=== PATIENT | female | born 1990 | race African-American/Black ===

== ENCOUNTER 2023-05-21 09:22 | Outpatient (CLI) | payer OTHER, SELFPAY ==
--- NOTE | ~2023-05-21 | US_ITS ---
EXAMINATION: US pelvic complete DATE: 05/21/2023 10:06 INDICATION: Uterine fibroids. Uterine hypertrophy. Comparison:No prior studies for comparison. TECHNIQUE: Multiple transabdominal and endovaginal sonographic images of the pelvis performed. FINDINGS: Uterus is enlarged measuring 20.6 x 12.1 x 17.8 cm with multiple fibroids. The endometrium is thickened measuring 1.8 cm with heterogeneous internal echotexture. The right ovary is enlarged measuring 9.4 x 7.8 x 10.4 cm with normal Doppler signal. There are multi ple simple and complicated cysts of the right ovary, largest discrete measurable measuring 4.9 cm whi ch is partially cystic with internal septations. The left ovary is not identified. No free fluid Ther e is no free fluid in the pelvis. There are no abnormal masses seen on either side. IMPRESSION: 1. Enlarged fibroid uterus with endometrial thickening. 2: Enlarged right ovary containing multiple simple and complicated cystic masses, largest measuring 4.9 cm. Although these are likely functional cyst other etiologies such as cystadenoma and cystadenoc arcinoma are not excluded. Recommend follow-up ultrasound in 4-6 weeks. Reviewed, dictated and finalized at location B. IMPRESSION: 1. Enlarged fibroid uterus with endometrial thickening. 2: Enlarged right ovary containing multiple simple and complicated cystic mass es, largest measuring 4.9 cm. Although these are likely functional cyst other e tiologies such as cystadenoma and cystadenocarcinoma are not excluded. Recommen d follow-up ultrasound in 4-6 weeks.
== END 2023-05-21 09:23 ==
LOC: MICIMG 09:23
PROVIDERS: PCP Nurse Practitioner; Visit Provider Nurse Practitioner
DX: N85.2 Hypertrophy of uterus (principal); D25.9 Leiomyoma of uterus, unspecified
CPT/HCPCS: 76856

== ENCOUNTER 2023-05-24 10:49 | Outpatient (CLI) | payer OTHER, SELFPAY ==
[2023-05-24 12:16] LABS: Carcinoembryonic Antigen < 0.3 ng/mL (0.0-3.0)
[2023-05-27 21:29] LABS: CA 19-9 45 U/mL (<34)
[2023-05-28 04:11] LABS: CA-125 65 U/mL (<35)
== END 2023-05-24 10:50 | disposition home or self-care (01) ==
LOC: ANHLAB 10:51
PROVIDERS: PCP Nurse Practitioner; Visit Provider Obstetrics & Gynecology Gynecology
DX: N83.201 Unspecified ovarian cyst, right side (principal)
CPT/HCPCS: 36415; 82378; 86301; 86304

== ENCOUNTER → 2023-10-01 08:36 | Outpatient (CLI) | payer OTHER, SELFPAY ==
--- NOTE | ~2023-10-01 | US_ITS ---
EXAMINATION: US pelvic complete DATE: 10/01/2023 09:00 INDICATION: Uterine fibroids TECHNIQUE: Multiple transabdominal and endovaginal sonographic images of the pelvis were obtained. COMPARISON: 05/21/2023 FINDINGS: The uterus measures 19.2 x 10.8 x 6.7 cm. There are multiple intramural fibroids of the [place] [facility] measuring up to 11.1 cm. The endometrial complex measures 11 mm. The left ovary is not visualized however no left adnexal abnormality is seen. The right ovary measures 7.6 x 6.9 x 6.6 cm and contain s a 4.7 cm cyst. The previously identified internal complexity is no longer evident. There is normal vascular flow in the right ovary. There is no free fluid in the pelvis. IMPRESSION: 1. Probable resolving hemorrhagic cyst of the right ovary. 2. Enlarged fibroid uterus. Reviewed, dictated and finalized at location B. [employer]
== END ==
PROVIDERS: PCP Obstetrics & Gynecology Gynecology; Visit Provider Obstetrics & Gynecology Gynecology
DX: D25.1 Intramural leiomyoma of uterus (principal); N85.2 Hypertrophy of uterus
CPT/HCPCS: 76856

== ENCOUNTER 2024-01-16 07:34 | Emergency (ER) | payer OTHER, SELFPAY ==
[2024-01-16] VITALS (10 sets, daily range): BP systolic 109–128; BP diastolic 64–80; PULSE 70–90; RESP 13–28; TEMP 36.4; O2SAT 99–100
[2024-01-16] MEDS: ONDANSETRON INJ 4 MG/2 ML VIAL IV PUSH (07:47)
[2024-01-16] MEDS: MORPHINE SULFATE (*CRX) 4 MG/ML INJ IV PUSH (07:47)
[2024-01-16] MEDS: KETOROLAC 15 MG/ML VIAL (*BKC) IV PUSH (07:47)
[2024-01-16 07:49] LABS: Basophils Percent Auto 0.3 % (0.2-1.2); Eosinophils Absolute Auto 0.1 K/mm3 (0-0.3); Eosinophils Percent Auto 0.9 % (0-4.4); Hematocrit 36.4 % (37.0-47.0); Hemoglobin 11.1 g/dL (12.0-15.0); Immature Granulocyte Absolute 0.02 K/mm3 (0.00-0.031); Immature Granulocyte Percent A 0.3 % (0-0.5); Lymphocytes Percent Auto 18.7 % (18.3-44.2); Mean Corpuscular HGB Conc 30.5 g/dl (32-36); Mean Corpuscular Volume 72.2 fl (80-100); Mean Platelet Volume 11.1 fl (7.4-10.4); Monocytes Absolute Auto 0.6 K/mm3 (0.1-0.6); Neutrophils Absolute Auto 5.4 K/mm3 (1.3-6.7); Neutrophils Percent Auto 71.8 % (45.5-73.1); Platelet Count Result 360 k/mm3 (150-375); Red Blood Count 5.04 M/mm3 (4.2-5.4); Red Cell Distribution Width 17.1 % (11.5-14.5); White Blood Count 7.5 K/mm3 (4.5-10.0)
[2024-01-16 08:01] LABS: Alanine Aminotransferase 11 U/L (6-35); Albumin Level 4.6 g/dL (3.5-5.1); Alkaline Phosphatase 51 U/L (38-126); Anion Gap 10 mmol/L (4-12); Aspartate Amino Transferase 20 U/L (14-36); Bilirubin,Total 0.9 mg/dL (0.2-1.3); Blood Urea Nitrogen 8 mg/dL (7-17); Calcium 9.4 mg/dL (8.4-10.2); Carbon Dioxide 16 mmol/L (22-30); Chloride 112 mmol/L (98-107); Estimated CRCL calculation 81 ml/min; Estimated Glomerular Filt Rate > 60; Glucose 98 mg/dL (65-110); Lipase 96 U/L (23-300); Potassium 3.6 mmol/L (3.4-5.0); Sodium 138 mmol/L (137-145)
[2024-01-16 09:04] LABS: Appearance Urine Clear (Clear); Bacteria Urine Rare /hpf; Bilirubin Urine Negative (Negative); Blood Urine Negative (Negative); Color Urine Yellow (Yellow); Glucose Urine UA Negative (Negative); Ketones Urine 1+ mg/dL (Negative); Leukocyte Esterase Ur Trace LEU/UL (Negative); Nitrate Urine Negative (Negative); Non Pathogenic Casts 0-2; Protein Urine Negative (Negative); RBC Urine 0-2 /hpf (0-2); Specific Grav Ur 1.012 (1.001-1.035); Squamous Epithelial Cell Urine Occasional /hpf (Few); Urobilinogen Urine 0.2 mg/dL (<2.0); WBC Urine 0-5 /hpf (0-3)
--- NOTE | 2024-01-16 09:04 | ED.ABDPAIN ---
HPI - Abdominal Pain General Chief Complaint: Abdominal Pain Stated Complaint: abd pain, cramps Time Seen by Provider: 01/16/24 07:40 Source: patient Mode of arrival: ambulatory Limitations: no limitations History of Present Illness HPI narrative: 33-year-old with a history of fibroid uterus here with the complaints of lower abdominal pain which started nausea side. Patient states that she took 2 tablets of acetaminophen last night with no relief. She denies any fever or chills. No history of nausea vomiting. MD elicited complaint: abdominal pain Pertinent past history: other (Fibroids) Onset (ago): day(s) (1) Pain Consistency: constant Location: suprapubic Severity: moderate Quality: aching Radiation: suprapubic Migration to: no migration Exacerbating factors: nothing Associated symptoms: denies other symptoms Related Data Allergies Allergy/AdvReac Type Severity Reaction Status Date / Time No Known Allergies Allergy Verified 01/16/24 07:43 Review of Systems Review of Systems: All systems reviewed & are unremarkable except as noted in HPI and below Constitutional: Constitutional: Reports no additional constitutional complaints Eyes: Eyes: Reports no additional eye complaints ENT: Reports system reviewed and no additional complaints, except as documented Cardiovascular: Cardiovascular: Reports no additional cardiovascular complaints Respiratory: Respiratory: Reports no additional respiratory complaints Gastrointestinal: Gastrointestinal: Reports as per HPI Musculoskeletal: Musculoskeletal: Reports no additional musculoskeletal complaints Integumentary/Breasts: Skin/Breast: Reports system reviewed and no additional complaints, except as docu Neurologic: Reports system reviewed and no additional complaints, except as documented Exam Narrative: GENERAL: Well-appearing, well-nourished, and in no acute distress. Tearful HEAD: Normocephalic, atraumatic. EYES: PERRLA and EOMI. ENT: Nares clear, no rhinorrhea or epistaxis. Mucous membranes moist. NECK: Supple. CHEST: Clear to auscultation. No respiratory distress. HEART: Regular rate and rhythm. No murmur heard. Normal peripheral pulses. ABDOMEN: Soft, nontender, nondistended, normal active bowel sounds. EXTREMITIES: Normal range of motion. No edema. SKIN: Warm, dry, no rash. NEURO: No focal deficits. Alert and oriented x3. PSYCH: Normal mood and affect. Course Course Emergency Course: Patient feeling much better after IV Toradol and morphine. A informed about her lab work. I would like her to take pain medication as prescribed, follow-up with her OBGYN. Vital Signs Vital signs: Vital Signs Temperature 36.4 C 01/16/24 07:39 Pulse Rate 90 01/16/24 07:39 Respiratory Rate 23 H 01/16/24 07:39 Blood Pressure 114/80 01/16/24 07:39 Pulse Oximetry 100 01/16/24 07:39 Oxygen Delivery Room Air 01/16/24 07:39 Temperature 36.4 C 01/16/24 07:39 Pulse Rate 71 01/16/24 09:08 Respiratory Rate 14 01/16/24 09:08 Blood Pressure 128/64 01/16/24 09:08 Pulse Oximetry 99 01/16/24 09:08 Oxygen Delivery Room Air 01/16/24 07:39 MDM - Abdominal Pain Differential Diagnosis Differential diagnosis: Likely abdominal pain, calculus of kidney and constipation Lab Data 01/16/24 07:44 01/16/24 07:44 Labs: Lab Results 01/16/24 01/16/24 Range/Units 07:44 08:50 WBC 7.5 (4.5-10.0) K/mm3 RBC 5.04 (4.2-5.4) M/mm3 Hgb 11.1 L (12.0-15.0) g/dL Hct 36.4 L (37.0-47.0) % MCV 72.2 L (80-100) fl MCH 22.0 L (26-34) pg MCHC 30.5 L (32-36) g/dl RDW 17.1 H (11.5-14.5) % Plt Count 360 (150-375) k/mm3 MPV 11.1 H (7.4-10.4) fl Immature Gran % (Auto) 0.3 (0-0.5) % Neut % (Auto) 71.8 (45.5-73.1) % Lymph % (Auto) 18.7 (18.3-44.2) % [place] % (Auto) 8.0 (2.6-8.5) % Eos % (Auto) 0.9 (0-4.4) % Baso % (Auto) 0.3 (0.2-1.2) % Lymph # (Auto) 1.40 (0.
[2024-01-16 09:11] LABS: Add Urine Microscopic? YES
== END 2024-01-16 09:09 | disposition home or self-care (01) ==
PROVIDERS: Emergency Provider Family Medicine; PCP Obstetrics & Gynecology Gynecology
DX: N94.6 Dysmenorrhea, unspecified (principal)
CPT/HCPCS: 36415; 80053; 81001; 81025; 83690; 85025; 96374; 96375; 99284; J1885; J2270; J2405

== ENCOUNTER 2024-01-17 00:02 | Emergency (ER) | payer OTHER, SELFPAY ==
--- NOTE | ~2024-01-17 | CT_ITS ---
EXAMINATION: CT abdomen pelvis w con DATE: 01/17/2024 01:10 INDICATION: Abdominal pain. TECHNIQUE: Computed tomography (CT) of the abdomen and pelvis was performed with 100 mL Omnipaque 350 intravenous contrast. Automated exposure control and iterative reconstruction technique were employe d. The dose-length product was 189.33 mGy-cm. COMPARISON: None. FINDINGS: The visualized portions of the lung bases are clear without pneumonia or pleural effusion. The heart size is normal. No pericardial effusion. The liver is normal. The gallbladder is distended. The spleen, pancreas, and adrenal glands are normal. There is mild bilateral hydronephrosis. There a re no dilated loops of bowel. The appendix is normal. The uterus measures 18.9 x 12.3 x 12.6 cm and c ontains multiple fibroids measuring up to 11.4 cm. The endometrial complex is normal. In the left adn exa, there is a 7.8 x 3.4 cm cyst. There is physiologic fluid in the abdomen. There are no pathologic ally enlarged lymph nodes. There is mild lumbar spondylosis. IMPRESSION: 1. Large uterus with multiple fibroids. 2. Mild bilateral hydronephrosis, likely secondary to the enlarged uterus. 3. 7.8 cm cyst in the left adnexa, likely benign. Left ovarian torsion is not excluded. Pelvis ultras ound is recommended in one year. Reviewed, dictated and finalized at location A. IMPRESSION: 1. Large uterus with multiple fibroids. 2. Mild bilateral hydronephrosis, likely secondary to the enlarged uterus. 3. 7.8 cm cyst in the left adnexa, likely benign. Left ovarian torsion is not e xcluded. Pelvis ultrasound is recommended in one year.
--- NOTE | ~2024-01-17 | US_ITS ---
EXAMINATION: US pelvic complete DATE: 01/17/2024 04:44 INDICATION: Left pelvic pain. TECHNIQUE: Multiple transabdominal sonographic images of the pelvis were obtained. COMPARISON: CT abdomen and pelvis 01/17/2024 FINDINGS: The uterus measures 17.7 cm. There are multiple fibroids in uterus measuring up to 8.9 cm. There is p hysiologic free fluid in the pelvis. The endometrial complex is not well visualized. The right ovary measures 7.2 x 4.1 x 4.9 cm. The left ovary measures 8.3 x 5.6 x 5.1 cm. There is normal vascular devon w in the ovaries. IMPRESSION: 1. Uterine fibroids. 2. Enlarged ovaries. Visibility is poor, and these measurements may be overestimated. Reviewed, dictated and finalized at location A. IMPRESSION: 1. Uterine fibroids. 2. Enlarged ovaries. Visibility is poor, and these measurements may be overesti mated.
[2024-01-17 00:06] VITALS: BP 103/73; PULSE 99; RESP 18; TEMP 36.4; O2SAT 95
--- NOTE | 2024-01-17 00:36 | ED.ABDPAIN ---
HPI - Abdominal Pain General Chief Complaint: Abdominal Pain <ABENA Orozco Last Filed: 01/21/24 09:57> Stated Complaint: Lower abd pain, seen earlier <ABENA Orozco Last Filed: 01/21/24 09:57> Time Seen by Provider: 01/17/24 00:17 <ABENA Orozco Last Filed: 01/21/24 09:57> Source: patient <ABENA Orozco Last Filed: 01/21/24 09:57> Mode of arrival: ambulatory <ABENA Orozco Last Filed: 01/21/24 09:57> Limitations: no limitations <ABENA Orozco Last Filed: 01/21/24 09:57> History of Present Illness HPI narrative: This is a 33 year old female that presents to the ER for lower abdominal pain. Ongoing since earlier today. Associated nausea. She has evaluated the ER for this earlier a given a dose of morphine and Toradol with relief. Presents tonight for continued pain. Denies fevers, vomiting, dysuria, or hematuria. <ABENA Orozco Last Filed: 01/21/24 09:57> Related Data Allergies/Adverse Reactions: Allergies Allergy/AdvReac Type Severity Reaction Status Date / Time No Known Allergies Allergy Verified 01/17/24 00:13 <ABENA Orozco Last Filed: 01/21/24 09:57> Review of Systems Review of Systems: CONSTITUTIONAL: Denies fever GASTROINTESTINAL: Reports abdominal pain and nausea. Denies vomiting, or diarrhea. GENITOURINARY: Denies dysuria <ABENA Orozco Last Filed: 01/21/24 09:57> All systems reviewed & are unremarkable except as noted in HPI and below <ABENA Orozco Last Filed: 01/21/24 09:57> [facility] Past Medical History Medical History: Medical History (Updated 01/20/24 @ 00:01 by Malik Lundy) History of uterine fibroid <ABENA Orozco Last Filed: 01/21/24 09:57> Social History Social History: Social History (Updated 01/17/24 @ 00:39 by Arpita Anderson PA-C) Smoking status: Never smoker <Arpita Anderson PA-C - Last Filed: 01/21/24 09:57> Exam Narrative: GENERAL: Well-appearing, well-nourished, and in no acute distress. HEAD: Normocephalic, atraumatic. EYES: EOMI. CHEST: Clear to auscultation. No respiratory distress. No wheezes rales or rhonchi HEART: Regular rate and rhythm. No murmur heard. Normal peripheral pulses. ABDOMEN: Enlarged uterus, normal active bowel sounds. Tender to palpation of the left lower abdomen, without guarding EXTREMITIES: Normal range of motion. No edema. SKIN: Warm, dry, no rash. NEURO: No focal deficits. Alert and oriented x3. PSYCH: Normal mood and affect <Arpita Anderson PA-C - Last Filed: 01/21/24 09:57> Course Course Emergency Course: Patient updated on her workup thus far. Care taken over by Dr. Rosales at shift change <Arpita Anderson PA-C - Last Filed: 01/21/24 09:57> Vital Signs Vital signs: Vital Signs Temperature 97.6 F 01/17/24 00:06 Pulse Rate 99 01/17/24 00:06 Respiratory Rate 18 01/17/24 00:06 Blood Pressure 103/73 01/17/24 00:06 Pulse Oximetry 95 01/17/24 00:06 Oxygen Delivery Room Air 01/17/24 00:06 Temperature 97.6 F 01/17/24 00:06 Pulse Rate 82 01/17/24 06:32 Respiratory Rate 18 01/17/24 06:32 Blood Pressure 113/72 01/17/24 06:32 Pulse Oximetry 100 01/17/24 06:32 Oxygen Delivery Room Air 01/17/24 00:06 <Arpita Anderson PA-C - Last Filed: 01/21/24 09:57> Vital Signs Temperature 97.6 F 01/17/24 00:06 Pulse Rate 99 01/17/24 00:06 Respiratory Rate 18 01/17/24 00:06 Blood Pressure 103/73 01/17/24 00:06 Pulse Oximetry 95 01/17/24 00:06 Oxygen Delivery Room Air 01/17/24 00:06 Temperature 97.6 F 01/17/24 00:06 Pulse Rate 82 01/17/24 06:32 Respiratory Rate 18 01/17/24 06:32 Blood Pressure 113/72 01/17/24 06:32 Pulse Oximetry 100 01/17/24 06:32 Oxygen Delivery Room Air 01/17/24 00:06 <Irais Rosales MD - Last Filed: 01/17/24 06:38> MDM - Abdominal Pain MDM
[2024-01-17] MEDS: ONDANSETRON INJ 4 MG/2 ML VIAL IV PUSH (00:42)
[2024-01-17] MEDS: MORPHINE SULFATE (*CRX) 4 MG/ML INJ IV PUSH (00:42)
[2024-01-17 00:44] LABS: Basophils Percent Auto 0.3 % (0.2-1.2); Eosinophils Absolute Auto 0.1 K/mm3 (0-0.3); Eosinophils Percent Auto 1.4 % (0-4.4); Hematocrit 35.1 % (37.0-47.0); Hemoglobin 10.7 g/dL (12.0-15.0); Immature Granulocyte Absolute 0.02 K/mm3 (0.00-0.031); Immature Granulocyte Percent A 0.3 % (0-0.5); Lymphocytes Absolute Auto 1.39 K/mm3 (0.9-3.2); Lymphocytes Percent Auto 17.9 % (18.3-44.2); Mean Corpuscular HGB Conc 30.5 g/dl (32-36); Mean Corpuscular Hemoglobin 22.2 pg (26-34); Mean Platelet Volume 10.3 fl (7.4-10.4); Monocytes Absolute Auto 0.8 K/mm3 (0.1-0.6); Monocytes Percent Auto 10.3 % (2.6-8.5); Neutrophils Absolute Auto 5.4 K/mm3 (1.3-6.7); Neutrophils Percent Auto 69.8 % (45.5-73.1); Platelet Count Result 301 k/mm3 (150-375); Red Blood Count 4.81 M/mm3 (4.2-5.4); Red Cell Distribution Width 16.9 % (11.5-14.5); White Blood Count 7.8 K/mm3 (4.5-10.0)
[2024-01-17 00:53] LABS: Alanine Aminotransferase 11 U/L (6-35); Albumin Level 4.4 g/dL (3.5-5.1); Alkaline Phosphatase 44 U/L (38-126); Anion Gap 8 mmol/L (4-12); Aspartate Amino Transferase 21 U/L (14-36); Bilirubin,Total 0.7 mg/dL (0.2-1.3); Blood Urea Nitrogen 10 mg/dL (7-17); Calcium 9.6 mg/dL (8.4-10.2); Carbon Dioxide 21 mmol/L (22-30); Chloride 110 mmol/L (98-107); Estimated CRCL calculation 74 ml/min; Estimated Glomerular Filt Rate > 60; Glucose 119 mg/dL (65-110); Potassium 4.1 mmol/L (3.4-5.0); Sodium 139 mmol/L (137-145)
[2024-01-17 01:04] LABS: Anisocytosis 1+; Hypochromasia 1+; Platelet Estimate Adequate (Adequate); Schistocytes Rare
[2024-01-17] MEDS: PANTOPRAZOLE SODIUM IV 40 MG VIAL IV PUSH (03:37)
[2024-01-17 03:39] VITALS: BP 118/73; PULSE 73; RESP 18; O2SAT 100
[2024-01-17] MEDS: ACETAMINOPHEN 500 MG TABLET 1000 MG PO (04:47)
[2024-01-17 06:32] VITALS: BP 113/72; PULSE 82; RESP 18; O2SAT 100
== END 2024-01-17 07:02 | disposition home or self-care (01) ==
PROVIDERS: Physician Assistant; Emergency Provider Emergency Medicine; PCP Obstetrics & Gynecology Gynecology
DX: D25.9 Leiomyoma of uterus, unspecified (principal); N13.30 Unspecified hydronephrosis; N94.89 Other specified conditions associated with female genital organs and menstrual cycle
CPT/HCPCS: 36415; 74177; 76856; 80053; 81025; 85025; 96374; 96375; 99284; A9270; C9113; J2270; J2405; Q9967

== ENCOUNTER 2024-01-19 02:38 | Emergency (ER) | payer OTHER, SELFPAY ==
[2024-01-19] VITALS (26 sets, daily range): BP systolic 99–115; BP diastolic 66–77; PULSE 71–122; RESP 14–31; TEMP 36.4; O2SAT 97–100
--- NOTE | ~2024-01-19 | US_ITS ---
EXAMINATION: US pelvic complete DATE: 01/19/2024 05:55 INDICATION: Left pelvic pain. TECHNIQUE: Multiple transabdominal sonographic images of the pelvis were obtained. COMPARISON: CT abdomen pelvis 01/19/24, ultrasound 01/17/24 FINDINGS: The uterus measures 18.9 x 12.3 x 12.6 cm. There are multiple fibroids in uterus measuring up to 9.2 cm. There is no free fluid in the pelvis. The endometrial complex is not well visualized. The right o vary measures 7.1 x 5.2 x 5.7 cm. There is a 3.7 cm cyst in the right ovary. The left ovary measures 7.3 x 6.0 x 4.3 cm. There is a 7.3 cm cyst with low-level echoes in the left ovary, consistent with a hemorrhagic cyst. There is vascular flow in the ovaries. IMPRESSION: 1. Large uterus with multiple fibroids. 2. 3.6 cm cyst in the right ovary, likely a follicular cyst. 3. 7.3 cm hemorrhagic cyst in left ovary. Pelvis ultrasound is recommended in 6-12 weeks. Reviewed, dictated and finalized at location E. IMPRESSION: 1. Large uterus with multiple fibroids. 2. 3.6 cm cyst in the right ovary, likely a follicular cyst. 3. 7.3 cm hemorrhagic cyst in left ovary. Pelvis ultrasound is recommended in 6 -12 weeks.
--- NOTE | ~2024-01-19 | CT_ITS ---
EXAMINATION: CT abdomen pelvis w con DATE: 01/19/2024 05:22 INDICATION: Left lower quadrant abdominal pain. TECHNIQUE: Computed tomography (CT) of the abdomen and pelvis was performed with 100 mL Omnipaque 350 intravenous contrast. Automated exposure control and iterative reconstruction technique were employe d. The dose-length product was 180.89 mGy-cm. COMPARISON: CT abdomen and pelvis 01/17/24 FINDINGS: The visualized portions of the lung bases are clear without pneumonia or pleural effusion. The heart size is normal. No pericardial effusion. The liver and spleen are normal. The gaseous diste ntion of the gallbladder, likely secondary to fasting. There is contrast in the gallbladder. The panc reas and adrenal glands are normal. There is mild bilateral hydronephrosis. There are no dilated loop s of bowel. The appendix is normal. The uterus measures 18.9 x 12.3 x 12.6 cm and contains multiple f ibroids measuring up to 11.4 cm. The endometrial complex is normal. In the left adnexa, there is a 7. 3 x 4.4 cm cyst. There is physiologic fluid in the abdomen. There are no pathologically enlarged lymp h nodes. There is mild lumbar spondylosis. IMPRESSION: 1. Large uterus with multiple fibroids. 2. Mild bilateral hydronephrosis, likely secondary to the enlarged uterus. 3. 7.3 cm cyst in the left adnexa, likely benign. Left ovarian torsion is not excluded. Pelvis ultras ound is recommended in one year. Reviewed, dictated and finalized at location E. IMPRESSION: 1. Large uterus with multiple fibroids. 2. Mild bilateral hydronephrosis, likely secondary to the enlarged uterus. 3. 7.3 cm cyst in the left adnexa, likely benign. Left ovarian torsion is not e xcluded. Pelvis ultrasound is recommended in one year.
[2024-01-19 02:56] LABS: Basophils Percent Auto 0.3 % (0.2-1.2); Eosinophils Absolute Auto 0.2 K/mm3 (0-0.3); Eosinophils Percent Auto 2.3 % (0-4.4); Hematocrit 32.7 % (37.0-47.0); Immature Granulocyte Absolute 0.01 K/mm3 (0.00-0.031); Immature Granulocyte Percent A 0.1 % (0-0.5); Lymphocytes Absolute Auto 1.53 K/mm3 (0.9-3.2); Lymphocytes Percent Auto 19.6 % (18.3-44.2); Mean Corpuscular HGB Conc 30.6 g/dl (32-36); Mean Corpuscular Hemoglobin 22.2 pg (26-34); Mean Corpuscular Volume 72.7 fl (80-100); Mean Platelet Volume 10.6 fl (7.4-10.4); Monocytes Absolute Auto 0.8 K/mm3 (0.1-0.6); Monocytes Percent Auto 10.1 % (2.6-8.5); Neutrophils Absolute Auto 5.3 K/mm3 (1.3-6.7); Neutrophils Percent Auto 67.6 % (45.5-73.1); Platelet Count Result 312 k/mm3 (150-375); Red Cell Distribution Width 16.4 % (11.5-14.5); White Blood Count 7.8 K/mm3 (4.5-10.0)
[2024-01-19 03:18] LABS: Alanine Aminotransferase 9 U/L (6-35); Albumin Level 4.3 g/dL (3.5-5.1); Alkaline Phosphatase 48 U/L (38-126); Anion Gap 8 mmol/L (4-12); Anisocytosis 1+; Aspartate Amino Transferase 19 U/L (14-36); Bilirubin,Total 0.6 mg/dL (0.2-1.3); Blood Urea Nitrogen 7 mg/dL (7-17); Calcium 9.1 mg/dL (8.4-10.2); Carbon Dioxide 22 mmol/L (22-30); Chloride 109 mmol/L (98-107); Estimated CRCL calculation 81 ml/min; Estimated Glomerular Filt Rate > 60; Glucose 104 mg/dL (65-110); Lipase 119 U/L (23-300); Platelet Estimate Adequate (Adequate); Potassium 3.8 mmol/L (3.4-5.0); Schistocytes Rare; Sodium 139 mmol/L (137-145)
[2024-01-19 04:13] LABS: Appearance Urine Clear (Clear); Bacteria Urine None Seen /hpf; Bilirubin Urine Negative (Negative); Blood Urine 3+ (Negative); Color Urine Yellow (Yellow); Glucose Urine UA Negative (Negative); Ketones Urine Negative (Negative); Leukocyte Esterase Ur Trace LEU/UL (Negative); Nitrate Urine Negative (Negative); Non Pathogenic Casts 0-2; Protein Urine Negative (Negative); RBC Urine 51-100 /hpf (0-2); Squamous Epithelial Cell Urine None Seen /hpf (Few); Urobilinogen Urine 0.2 mg/dL (<2.0); WBC Urine 0-5 /hpf (0-3)
[2024-01-19 04:45] LABS: Add Urine Microscopic? YES
--- NOTE | 2024-01-19 04:47 | ED.ABDPAIN ---
HPI - Abdominal Pain General Chief Complaint: Abdominal Pain Stated Complaint: Pain in left abd Time Seen by Provider: 01/19/24 04:17 Source: patient Limitations: no limitations History of Present Illness HPI narrative: Patient is a 33-year-old female presents to the emergency department complaining of left lower quadrant pain. Patient states the pain is been going on since , constant, waxing and waning, feels like a sharp in squeezing type pain, has not noticed anything that makes it better or worse, it has been taking pain medications that she was prescribed on her recent evaluation without any significant relief, admits to some slight nausea and a couple episodes of vomiting, denies any history of this pain prior to this most recent episode but does admit to history of pain with her menstrual cycle because she has fibroids and usually does not last this long but is somewhat similar. Patient denies fever, recent injuries, recent illness, diarrhea, constipation, urinary discomfort, history kidney stones, numbness, weakness, chest pain, difficulty breathing. Related Data Allergies Allergy/AdvReac Type Severity Reaction Status Date / Time No Known Allergies Allergy Verified 01/17/24 00:13 Review of Systems Review of Systems: All systems reviewed & are unremarkable except as noted in HPI and below PMFSH Past Medical History Medical History (Updated 01/19/24 @ 08:41 by Darshan Ocnonor DO) History of uterine fibroid Social History Social History (Updated 01/17/24 @ 00:39 by Arpita Anderson PA-C) Smoking status: Never smoker Comments At time of signature, I have reviewed and agree with nursing past medical, surgical, social and family history unless otherwise noted. Please see the nursing chart for further information. There is no relevant family history pertinent to the presenting complaint. Exam Narrative: CONST: No acute distress. Well nourished. HENMT: Head is normocephalic and atraumatic. Moist mucous membranes. No posterior oropharynx erythema. EYES: No conjunctival icterus, injection, or pallor. PERRL. NECK: No meningeal signs. RESP: Able to speak in full sentences. Normal respiratory effort. CTAB. CARDIO: Tachycardic rate. Regular rhythm. 2+ DP and radial pulses bilaterally. GI: Nondistended. Mild tenderness palpation in the left adnexal region. Palpable fullness in the suprapubic region. No rebound or guarding or rigidity. : No CVA tenderness to palpation. SKIN: No rashes or lesions noted on exposed skin. NEURO: Oriented x3. Moves all extremities. EXTREM/MSK/BACK: No pedal edema. PSYCH: Normal affect. Course Vital Signs Vital signs: Vital Signs Temperature 97.5 F L 01/19/24 02:50 Pulse Rate 122 H 01/19/24 02:50 Respiratory Rate 16 01/19/24 02:50 Blood Pressure 105/67 01/19/24 02:50 Pulse Oximetry 97 01/19/24 02:50 Temperature 97.5 F L 01/19/24 02:50 Pulse Rate 75 01/19/24 05:03 Respiratory Rate 23 H 01/19/24 05:03 Blood Pressure 104/67 01/19/24 05:02 Pulse Oximetry 100 01/19/24 05:03 MDM - Abdominal Pain MDM Narrative Medical decision making narrative: Patient presents with the above complaint. Initial vitals are remarkable for tachycardia. Physical examination as noted above. Plan discussed: Laboratory analysis, NPO, morphine for pain, IV fluids, Zofran, CT then apposed with contrast, ultrasound of the pelvis to evaluate for torsion. Patient demonstrates understanding and agreeable with plan of care. Differential diagnosis includes was not limited to ureterolithiasis, fibroids, ovarian torsion, ovarian cyst, UTI. Patient was reassessed at the bedside. Patient is in no acute distress. The patient has remained stable throughout the entire ED visit. Counseled patient regarding diagnostic results and potential diagnosis. Anticipatory guidance provided. Patient instructed to follow up with gynecology within 3-5 days. Patient counseled on
[2024-01-19] MEDS: ONDANSETRON INJ 4 MG/2 ML VIAL IV PUSH (05:20)
[2024-01-19] MEDS: MORPHINE SULFATE (*CRX) 4 MG/ML INJ IV PUSH (05:20)
[2024-01-19] MEDS: SODIUM CHLORIDE 0.9% IV 1,000 ML 999 ML IV CONT (05:20)
[2024-01-19 05:24] LABS: Lactic Acid Reflex 0.7 mmol/L (0.7-2.0)
[2024-01-19 05:42] LABS: Magnesium 1.9 mg/dL (1.6-2.3)
== END 2024-01-19 09:00 | disposition home or self-care (01) ==
PROVIDERS: Emergency Provider Student in an Organized Health Care Education/Training Program
DX: N83.202 Unspecified ovarian cyst, left side (principal); N83.201 Unspecified ovarian cyst, right side; D25.9 Leiomyoma of uterus, unspecified
CPT/HCPCS: 36415; 74177; 76856; 80053; 81001; 81025; 83605; 83690; 83735; 85025; 96361; 96374; 96375; 99284; J2270; J2405; J7030; Q9967